=== PATIENT | male | born 1960 | race Caucasian/White ===

== ENCOUNTER 2018-11-01 07:13 | Emergency (ER) | payer BC ==
[2018-11-01 07:28] VITALS: BP 134/79
--- NOTE | 2018-11-01 07:55 | UC ---
Abdominal Pain Male HPI - HPI Summary HPI Summary: 58-year-old male comes in to clinic today with a chief complaint of upper abdominal pain and fatigue. This all started in late August 2018 with upper abdominal pain and fatigue. Pain is worse when he eats. Has not nose any blood in his stool. No prior abdominal surgeries. Pain is mild. He can be mid epigastrium left upper quadrant or right upper quadrant. Pain is variable. Fevers or chills. He was started on a proton pump inhibitor about 10 days ago. He's noticed increasing fatigue. The fatigue is worst about one week ago. Overall the symptoms have slightly improved in the last week. 3 weeks ago patient syncopized while in shower. Patient denies any chest pain. He has been having a cough chest congestion. No edema. Has not noticed any jaundice. There is a family history of pancreatic cancer. - History of Current Complaint Chief Complaint: UCAbdominalPain Stated Complaint: STOMACH COMPLAINT Time Seen by Provider: 11/01/18 07:31 Pain Intensity: 3 - Allergies/Home Medications Allergies/Adverse Reactions: Allergies Allergy/AdvReac Type Severity Reaction Status Date / Time Penicillins Allergy Intermediate Rash Verified 11/01/18 07:29 Home Medications: Home Medications Omeprazole 20 mg PO DAILY 11/01/18 [History Confirmed 11/01/18] PMH/Surg Hx/FS Hx/Imm Hx Previously Healthy: Yes Cardiovascular History: Hypertension - Surgical History Surgical History: Yes Surgery Procedure, Year, and Place: RIGHT SHOULDER-YRS AGO [facility]. cyst in throat 2011 - Family History Known Family History: Positive: Other - PANCREATIC CANCER - Social History Alcohol Use: None Substance Use Type: None Smoking Status (MU): Never Smoked Tobacco Review of Systems All Other Systems Reviewed And Are Negative: Yes Constitutional: Positive: Fatigue Skin: Positive: Negative Eyes: Positive: Negative ENT: Positive: Negative Respiratory: Positive: Cough Cardiovascular: Positive: Negative Gastrointestinal: Positive: Abdominal Pain Genitourinary: Positive: Negative Motor: Positive: Negative Neurovascular: Positive: Negative Musculoskeletal: Positive: Negative Neurological: Positive: Negative Psychological: Positive: Negative Is Patient Immunocompromised?: No Physical Exam Appearance: Well-Appearing, No Pain Distress, Well-Nourished Vital Signs: Initial Vital Signs Temp 97.7 F 11/01/18 07:18 Pulse 72 11/01/18 07:18 Resp 16 11/01/18 07:18 BP 134/79 11/01/18 07:18 Pulse Ox 100 11/01/18 07:18 Vital Signs Reviewed: Yes Eye Exam: Normal Eyes: Positive: Conjunctiva Clear ENT: Positive: Normal ENT inspection, Pharynx normal, TMs normal Neck exam: Normal Neck: Positive: Supple Respiratory: Positive: Lungs clear, Normal breath sounds, No respiratory distress Cardiovascular: Positive: RRR Abdomen Description: Positive: Nontender - PATIENT REPORTS AREA OF PAIN MOSTLY EPIGASTRIUM. NON TENDER ON EXAM TODAY, Soft. Negative: CVA Tenderness (R ), CVA Tenderness (L) Bowel Sounds: Positive: Present Musculoskeletal Exam: Normal Musculoskeletal: Positive: Strength Intact, ROM Intact Neurological Exam: Normal Neurological: Positive: Alert, Muscle Tone Normal Psychological Exam: Normal Psychological: Positive: Normal Response To Family, Age Appropriate Behavior Skin Exam: Normal Abd Pain Male Course/Dx - Course Course Of Treatment: Order Information: CHEST PA LAT 2 VWS. Accession Number: [id number]. CPT: 95414. HISTORY: cough,fatigue. COMPARISONS: September 09, 2009. VIEWS: 4: Frontal dual-energy and lateral views of the chest. FINDINGS: CARDIOMEDIASTINAL SILHOUETTE: The cardiomediastinal silhouette is normal. LEAH: The leah are normal. PLEURA: The costophrenic angles are sharp. No pleural abnormalities are noted. LUNG PARENCHYMA: The lungs are clear. ABDOMEN : The upper abdomen is clear. There is no subphrenic gas. BONES AND SOFT TISSUES: Degenerative changes are noted along the spine. OTHER: None. IMPRESSION: NO ACTIVE CARDIOPULMONARY DISEASE. . <Electronically signed by Basilio Kraus MD in OV> 11/01/18 0851. Order Information: US ABDOMEN LIMITED. Accession Number: [id number]. CPT: 06291. HISTORY: upper abd pian,fatitue,FHx Pancreatic CA. COMPARISONS: CT dated June 11, 2009. TECHNIQUE: Multiple transverse and longitudinal ultrasound images were obtained of the. right upper quadrant of the abdomen using grayscale and color Doppler imaging. FINDINGS: LIVER: The liver is normal in shape, size, contour, and echogenicity. There are no focal. parenchymal masses. There is normal hepatopedal flow of the portal vein on Doppler. imaging. BILIARY TREE: There is no intrahepatic or extrahepatic biliary dilatation. The common. duct measures 0.3 cm. GALLBLADDER: The gallbladder is well-visualized. There is no cholelithiasis, gallbladder. wall thickening, pericholecystic fluid, or sonographic [place] sign. PANCREAS: The head of the pancreas is unremarkable. The tail of the pancreas is not well. visualized secondary to overlying bowel gas. RIGHT KIDNEY: The right kidney is normal in shape, size, contour, and echogenicity. There. is no hydronephrosis or nephrolithiasis. The right kidney measures 11 x 4.1 x 4.4 cm. AORTA AND IVC: The aorta and IVC are unremarkable. FLUID: There are no pleural effusions. There is no free fluid within the hepatorenal. recess. OTHER FINDINGS: None. IMPRESSION: NO ACUTE SONOGRAPHIC PATHOLOGY OF THE VISUALIZED PORTION OF THE ABDOMEN. . <Electronically signed by Basilio Kraus MD in OV> 11/01/18 0447. I discussed the chest x-ray and ultrasound reports with the patient and his . They're both normal. Overall the patient's appears to be improving with his epigastric discomfort dry cough and fatigue palpating on the proton pump inhibitor. I recommended continuing the proton pump inhibitor is gastritis may be the cause for his symptoms. Labs are still pending to address other potential causes of upper abdominal discomfort and fatigue. The episode of syncope was 3 weeks ago when he was in the shower and is quite stressed he denies any chest pain or any concern of cardiac issues at this time. Plan is to follow-up his primary care doctor be reevaluated here in the emergency department if anything worsens or any questions or concerns. - Differential Dx/Clinical Impression Provider Diagnosis: Upper abdominal pain, Fatigue, Syncope Discharge - Sign-Out/Discharge Documenting (check all that apply): Patient Departure All imaging exams completed and their final reports reviewed: Yes - Discharge Plan Condition: Stable Disposition: HOME Patient Education Materials: Syncope (ED), Abdominal Pain (ED), Fatigue (ED) Referrals: Bill Hinds MD [Primary Care Provider] - [facility] [Outside] [facility] [Outside] Wing Toscano MD [Medical Doctor] - Additional Instructions: FOLLOW UP WITH YOUR PRIMARY CARE DOCTOR. FOLLOW UP WITH GASTROENTEROLOGY. GET RECHECKED FOR ANY WORSENING OF YOUR CONDITION OR QUESTIONS OR CONCERNS. - Billing Disposition and Condition Condition: STABLE Disposition: Home
[2018-11-01 11:04] LABS: ABS Basophils 0 10^3/ul (0-0.2); ABS Eosinophils 0.1 10^3/ul (0-0.6); ABS Lymphocytes 1.3 10^3/ul (1.0-4.8); ABS Monocytes 0.5 10^3/ul (0-0.8); ABS Neutrophils 5.1 10^3/ul (1.5-7.7); ABS Nucleated RBC 0 10^3/ul; Hematocrit 43 % (42-52); Lymphocyte % 18.3 %; Mean Corpuscular HGB Conc 33 g/dl (31-36); Mean Corpuscular Hemoglobin 29 pg (27-31); Mean Corpuscular Volume 89 fL (80-94); Mean Platelet Volume 9.9 fL (7.4-10.4); Nucleated Red Blood Cells % 0.1; Platelet Count 237 10^3/ul (150-450); Red Blood Count 4.82 10^6/ul (4.00-5.40); Red Cell Distribution Width 14 % (10.5-15); White Blood Count 7.1 10^3/ul (3.5-10.8)
[2018-11-01 11:18] LABS: Albumin 4.4 g/dL (3.2-5.2); Albumin/Globulin Ratio 1.8 (1-3); BUN/Creatinine Ratio 16.3 (8-20); Calcium 9.3 mg/dL (8.6-10.3); EGFR African American 73.7 (>60); EGFR Non-African American 60.9 (>60); Globulin 2.4 g/dL (2-4); Potassium 4.1 mmol/L (3.5-5.0); Total Bilirubin 0.6 mg/dL (0.2-1.0); Total Protein 6.8 g/dL (6.4-8.9)
[2018-11-01 11:31] LABS: TSH (Thyroid Stimulating Horm) 3.53 mcIU/mL (0.34-5.60)
[2018-11-01 11:33] LABS: Free T4 0.89 ng/dL (0.61-1.12)
[2018-11-01 15:29] LABS: Hepatitis B Surface Antigen Nonreactive (Nonreactive)
[2018-11-01 15:51] LABS: Hepatitis C Antibody Nonreactive (Nonreactive)
--- NOTE | 2018-11-03 16:05 | UC ---
- Progress Note Progress Note: 11/03/2018 Lyme serology: negative. Pt was advised to f/u w/ PCP if not improvement. No change Ashely Boston PA-C Course/Dx - Diagnoses Provider Diagnoses: Upper abdominal pain, Fatigue, Syncope Discharge - Sign-Out/Discharge Documenting (check all that apply): Patient Departure - D/C home All imaging exams completed and their final reports reviewed: Yes - Discharge Plan Condition: Stable Disposition: HOME Patient Education Materials: Syncope (ED), Abdominal Pain (ED), Fatigue (ED) Referrals: [facility] [Outside] [facility] [Outside] Bill Hinds MD [Primary Care Provider] - Wing Toscano MD [Medical Doctor] - Additional Instructions: FOLLOW UP WITH YOUR PRIMARY CARE DOCTOR. FOLLOW UP WITH GASTROENTEROLOGY. GET RECHECKED FOR ANY WORSENING OF YOUR CONDITION OR QUESTIONS OR CONCERNS. - Billing Disposition and Condition Condition: STABLE Disposition: Home
== END 2018-11-01 09:20 | disposition home or self-care (01) ==
LOC: UCEAST 07:13
DX: R10.10 Upper abdominal pain, unspecified (principal); R53.83 Other fatigue; R55 Syncope and collapse; Z88.0 Allergy status to penicillin
CPT/HCPCS: 36415; 71046; 76705; 80053; 80074; 82306; 82550; 83036; 83690; 84439; 84443; 84479; 84481; 85025; 86618; 99201; G0463